=== PATIENT | male | born 1995 | race Asian ===

== ENCOUNTER 2018-06-03 04:45 | Inpatient (IN) ==
[2018-06-03 05:25] LABS: Appearance Urine Clear (Clear); Bilirubin Urine Negative (Negative); Blood Urine 3+ (Negative); Color Urine Yellow; Glucose Urine UA Negative (Negative); Ketones Urine Negative (Negative); Leukocyte Esterase Urine Negative (Negative); Nitrite Urine Negative (Negative); Protein Urine Negative (Negative); Specific Gravity Urine 1.011 (1.000-1.030); Urobilinogen Urine Negative (Negative)
[2018-06-03 05:26] LABS: Basophils # (auto) 0.02 K/uL (0-0.2); Basophils % (auto) 0.3 %; Eosinophils # (auto) 0.08 K/uL (0-0.5); Eosinophils % (auto) 1.1 %; Hematocrit (blood only) 48.3 % (42-52); Hemoglobin 17.6 g/dL (14.0-18.0); Immature Granulocytes # (auto) 0.02 K/uL (0.00-0.02); Immature Granulocytes % (auto) 0.3 %; Lymphocytes # (auto) 1.46 K/uL (1.2-3.4); Lymphocytes % (auto) 19.2 %; Mean Corpuscular Hgb Conc 36.4 g/dL (32-36); Mean Corpuscular Volume 88.3 fL (80-100); Mean Platelet Volume 10.3 fL (7.4-10.4); Monocytes # (auto) 0.35 K/uL (0.11-0.59); Monocytes % (auto) 4.6 %; Neutrophils # (auto) 5.67 K/uL (1.4-6.5); Neutrophils % (auto) 74.5 %; Platelet Count 265 K/uL (130-400); RDW Coefficient of Variation 12.1 % (11.5-14.5); RDW Standard Deviation 38.6 fL (36.4-46.3); Red Blood Count 5.47 M/uL (4.7-6.1)
[2018-06-03 05:43] LABS: Alanine Aminotransferase 64 U/L (12-78); Albumin Level 4.5 gm/dl (3.4-5.0); Aspartate Aminotransferase 280 U/L (15-37); BUN Creatinine Ratio 10.4 (10-20); Blood Urea Nitrogen 12 mg/dl (7-18); Calcium 8.9 mg/dl (8.5-10.1); Carbon Dioxide 28 mmol/L (21-32); Chloride 109 mmol/L (98-107); Est GFR (African American) 105.6; Est GFR (Non-African American) 91.1; Glucose 99 mg/dl (70-99); Potassium 3.9 mmol/L (3.5-5.1); Sodium 144 mmol/L (136-145)
[2018-06-03 05:45] LABS: Amphetamines+Metham, Urine Neg (Neg); Barbiturates, Urine Neg (Neg); Benzodiazepine, Urine Neg (Neg); Cocaine, Urine Neg (Neg); MDMA (Ecstacy), Urine Neg (Neg); Methadone, Urine Neg (Neg); Opiate, Urine Neg (Neg); Phencyclidine, Urine Neg (Neg)
[2018-06-03 05:54] LABS: Albumin Globulin Ratio 1.1 (0.9-2); Alkaline Phosphatase 63 U/L (45-117); Total Protein 8.5 gm/dl (6.4-8.2)
[2018-06-03 05:58] LABS: Acetaminophen < 2 ug/ml (10-30); Salicylate < 2.7 mg/dl (2.8-20)
[2018-06-03 06:02] LABS: Bacteria Urine Negative (Negative); Epithelial Cell Urine 0-5 /lpf (0-5); RBC Urine 0-4 /hpf (0-4); WBC Urine 0-5 /hpf (0-5)
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
[2018-06-03] MEDS ORDERED: BISMUTH SUBSALICYLATE PER ML OMNICELL CHARGE PO PRN (13:02)
[2018-06-03] MEDS ORDERED: ALUMINUM/MAGNESIUM SUSP 30 ML UDC PO PRN (13:02)
[2018-06-03] MEDS ORDERED: ACETAMINOPHEN 325 MG TAB PO PRN (13:02)
[2018-06-03] MEDS ORDERED: LORazepam 1 MG TAB PO PRN (13:02)
[2018-06-03] MEDS ORDERED: SODIUM CHLORIDE 0.65% NA SOLN 45 ML (OCEAN) PRN (13:02)
[2018-06-03] MEDS ORDERED: MAGNESIUM HYDROXIDE SUSP 30 ML UDC PO PRN (13:02)
--- NOTE | 2018-06-03 14:51 | Emergency Department Note ---
ED Visit Note I received this patient sign out at the change of shift from Dr. Apple, pending a more sober state and mental health evaluation. The patient was initially reluctant for admission for mental health treatment however after long discussion, he has very little social support. His girlfriend broke up with him several weeks ago, his best friend in a motor vehicle accident in October. Given the junk driving and thoughts of suicide without a clear plan, I do feel the patient is impulsive and at high risk for danger to himself. Patient did admit that his parents are forcefully encouraging him to obtain a PhD, although he has no desire to do so. Patient has now been charged with a DUI which will alter his visa status which will further complicate his social situation. He has agreed to sign in voluntarily. Patient was referred to [facility] and accepted. . : Alcohol intoxication Qualifiers: Complication of substance-induced condition: uncomplicated Qualified Code(s): F10.920 - Alcohol use, unspecified with intoxication, uncomplicated
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
--- NOTE | 2018-06-06 10:19 | Discharge Summary ---
Date of Service June 06, 2018 History of Present Illness The patient is 22 yo Seth [facility] leon from [place], with no past psychiatric history, who says that he has been sad since his best friend in an MVA in Oct 2017, while they were texting. He says that he feels some degree of responsibility for his since they were texting back and forth, but at the same time, knows that his friend made his own choices about texting while driving. He denies symptoms of depression before this event, and since the event denies regular problems with sleep, appetite, anxiety or SI. He reports that yesterday he woke up thinking about his friend leading him to feel sad. He says that he "overreacted" and started drinking. He was driving in his car, was pulled over and charged with DUI, and when he was in the police car he says that he made suicidal statements, while under the influence. There is a 302 petitioners statement from the solar energy installation manager indicating the even after his alcohol level came down and he was medically cleared, he was still admitting that he was severely depressed and had thought about killing himself last night but did not because he did not want to cause pain to his friends and family. He admits that he was trying to think of a way to kill himself that would not appear to be suicide to save his family from that hurt. She also lists multiple stressors including his friends , expectations from his family to go on and get his PhD which he does not want to do, and recent breakup with a girlfriend. At the time I see the patient, he is clearly minimizing. He admits he made suicidal statements while under the influence and only once in the police car and denies that after he sobered up that he had any further thoughts of suicide. He has told his parents that he is here and they are "angry". He had told the family service caseworker in the ED last evening that because of the DUI he would likely lose his visa, after returning to [place] which would upset both his parents and the [facility] government. He would not be allowed to return to the [place]. He admits that he got drunk, and had been sad but believes that he overreacted. Today he admits to sadness but denies suicidal thoughts. He continues to deny vegetative symptoms. He denies ever having had any auditory or visual hallucinations. He denies any self-injurious behaviors. He denies any history of eating disorder behaviors. He denies any discrete episodes of euphoric mood, sleeplessness or pleasure seeking behaviors that would be congruent with bipolar disorder. He has submitted his 72-hour notice to withdraw from treatment which will June 06 at 1430 and would like to go home as soon as possible. Physical Exam Psychiatric Orientation: alert, oriented x 3, cooperative and + guarded Apperance: appropriately dressed, appropriately groomed and appeared stated age Eye Contact: + fair eye contact Motor Behavior: steady gait and station and no abnormal motor movements Speech: normal rate/rhythm/volume of speech Affect: + blunted affect Mood: no depressed mood and no anxious mood "Okay." Thought Process: goal directed thought process Thought Content: reality based without delusions Suicidal Thoughts: denies suicidal thoughts Homicidal Thoughts: denies homicidal thoughts Hallucinations: no auditory hallucinations Cognition: recent memory grossly intact, attention grossly intact and language grossly intact Estimated Intelligence: consistent with education level Insight: + fair insight Judgement: + fair judgement Vital Signs (Past 24 Hours) Last Vital Signs Temp 36.6 C 06/06/18 09:43 Pulse 62 06/06/18 09:43 Resp 16 06/06/18 09:43 BP 126/81 06/06/18 09:43 Pulse Ox 99 06/06/18 09:43 Principal Diagnosis Adjustment disorder Alcohol intoxication Psychiatric Data The patient was hospitalized on our unit for 3 days. He signed in voluntarily, but submitted a 72-hour notice requesting to withdraw from treatment immediately after arriving on the unit. He consistently denied suicidal thoughts and symptoms of depression, stating that he felt overwhelmed after police pulled him over and he got a DUI, and that he only had suicidal thoughts briefly in that context. He refused to allow staff to speak with his parents, but he called them in [place], and said that he told them about his DUI and that he was in the hospital. He did allow staff to contact his roommate, who said he had not noted any signs of depression and the patient, and had no concerns about his safety. He had a meeting with [employer] staff from the office of student care and advocacy, and agreed to meet with them again after discharge. He was focused on wanting discharge, stating that he needed to meet with an deputy county attorney to deal with his DUI. He did endorse concern that his DUI would result in his visa being revoked, and that he would not be able to continue at [facility]. Because of this, he said he would not return home to [place] for the summer as planned, as he was worried that he would then not be allowed to return to the [place]. No medications were started, but he did agree to a referral to [facility] for therapy. He was advised of recommendations to abstain from alcohol given his recent DUI and clear worsening of mood with suicidal thoughts when intoxicated. Day of Discharge Assessment The patient states his mood is "okay," continues to deny suicidal thoughts, is requesting discharge, and denies any safety concerns with leaving the hospital. He is willing to follow up with therapy at [facility]. His roommate will be picking him up. Transition of Care Transition Of Care Record: was reviewed with the patient Advance Directives Advance Directives Information Provided: Yes Advance Directives: No Mental Health Advance Directive: No Advance Directives on File: No Living Will: No Power of Rock Crushing Machine Operator: No Advance Directives Reason:: Declines as Mental Health Visit. Risk Factors Assessment Risk factors were mitigated by admission to the inpatient unit, evaluation and monitoring of mood symptoms, review of recommendations to abstain from substance use given the risk of worsening mood and suicidal thoughts, recommendations for a family meeting with his parents which she refused, contacting his roommate for collateral information, involving him in groups and therapy, working on healthy coping skills and a discharge safety plan, coordination with the [facility], and referral for outpatient therapy. The patient has consistently denied mood symptoms and suicidal thoughts, and is tending to ADLs independently, and states willingness to follow up as an outpatient. He submitted a 72-hour notice which expires today, and is requesting discharge. As he is no longer at acute risk of harm to himself, he can be discharged and managed as an outpatient at this time. He has not endorsed thoughts of harming others or a history of violence, and is at low risk for harm to others. Male: Yes : No Do You Have Access To A Gun?: No Health Problems: No Mental Health Diagnoses: No Substance Use Disorders: No Previous Attempt: No Family History of Suicide: No Previous Psychiatric Hospitalization: No Hopelessness: No Smoker: No Protective Factors Assessment Holiness Beliefs: No : No Responsible for Young Children: No Employed: Yes Supportive Family: No Good Rapport with Provider: No Tobacco Cessation at Discharge Tobacco Cessation Medication Prescribed at Discharge: Not Applicable/Non-Smoker Total Time Total Time Spent: Greater Than 30 Minutes Total Time Includes: Examination of the patient, Discharge Planning and Medication Reconciliation Discharge Data Lab Results 06/03/18 06/03/18 06/03/18 05:10 05:10 05:14 WBC 7.60 RBC 5.47 Hgb 17.6 Hct 48.3 MCV 88.3 MCH 32.2 MCHC 36.4 H RDW Std Deviation 38.6 RDW Coeff of Matti 12.1 Plt Count 265 MPV 10.3 Immature Gran % (Auto) 0.3 Neut % (Auto) 74.5 Lymph % (Auto) 19.2 Early % (Auto) 4.6 Eos % (Auto) 1.1 Baso % (Auto) 0.3 Immature Gran # (Auto) 0.02 Neut # (Auto) 5.67 Lymph # (Auto) 1.46 Early # (Auto) 0.35 Eos # (Auto) 0.08 Baso # (Auto) 0.02 Sodium Potassium Chloride Carbon Dioxide Anion Gap BUN Creatinine Est Cr Clr Drug Dosing Est GFR ( Amer) Est GFR (Non-Af Amer) BUN/Creatinine Ratio Glucose Calcium Total Bilirubin AST ALT Alkaline Phosphatase Total Protein Albumin Globulin Albumin/Globulin Ratio Folate TSH Urine Color Yellow Urine Appearance Clear Urine pH 7.0 Ur Specific Delta 1.011 Urine Protein Negative Urine Glucose (UA) Negative Urine Ketones Negative Urine Blood 3+ H Urine Nitrite Negative Urine Bilirubin Negative Urine Urobilinogen Negative Ur Leukocyte Esterase Negative Urine RBC 0-4 Urine WBC 0-5 Ur Epithelial Cells 0-5 Urine Bacteria Negative Salicylates Urine Opiates Screen Neg Ur Methadone, Qual Neg Acetaminophen Urine Barbiturates Neg Ur Phencyclidine (PCP) Neg U Amphetamin/Meth Scrn Neg MDMA (Ecstasy) Screen Neg U Benzodiazepines Scrn Neg Ur Cocaine Metabolite Neg U Marijuana (THC) Screen Neg Ethyl Alcohol mg/dL 06/03/18 06/03/18 06/03/18 05:14 05:14 05:14 WBC RBC Hgb Hct MCV MCH MCHC RDW Std Deviation RDW Coeff of Matti Plt Count MPV Immature Gran % (Auto) Neut % (Auto) Lymph % (Auto) Early % (Auto) Eos % (Auto) Baso % (Auto) Immature Gran # (Auto) Neut # (Auto) Lymph # (Auto) Early # (Auto) Eos # (Auto) Baso # (Auto) Sodium 144 Potassium 3.9 Chloride 109 H Carbon Dioxide 28 Anion Gap 7.0 BUN 12 Creatinine 1.15 Est Cr Clr Drug Dosing Not Reportable Est GFR ( Amer) 105.6 Est GFR (Non-Af Amer) 91.1 BUN/Creatinine Ratio 10.4 Glucose 99 Calcium 8.9 Total Bilirubin 2.0 H AST 280 H ALT 64 Alkaline Phosphatase 63 Total Protein 8.5 H Albumin 4.5 Globulin 4.0 Albumin/Globulin Ratio 1.1 Folate TSH 1.090 Urine Color Urine Appearance Urine pH Ur Specific Delta Urine Protein Urine Glucose (UA) Urine Ketones Urine Blood Urine Nitrite Urine Bilirubin Urine Urobilinogen Ur Leukocyte Esterase Urine RBC Urine WBC Ur Epithelial Cells Urine Bacteria Salicylates < 2.7 L Urine Opiates Screen Ur Methadone, Qual Acetaminophen < 2 L Urine Barbiturates Ur Phencyclidine (PCP) U Amphetamin/Meth Scrn MDMA (Ecstasy) Screen U Benzodiazepines Scrn Ur Cocaine Metabolite U Marijuana (THC) Screen Ethyl Alcohol mg/dL 198.0 H 06/03/18 13:11 WBC RBC Hgb Hct MCV MCH MCHC RDW Std Deviation RDW Coeff of Matti Plt Count MPV Immature Gran % (Auto) Neut % (Auto) Lymph % (Auto) Early % (Auto) Eos % (Auto) Baso % (Auto) Immature Gran # (Auto) Neut # (Auto) Lymph # (Auto) Early # (Auto) Eos # (Auto) Baso # (Auto) Sodium Potassium Chloride Carbon Dioxide Anion Gap BUN Creatinine Est Cr Clr Drug Dosing Est GFR ( Amer) Est GFR (Non-Af Amer) BUN/Creatinine Ratio Glucose Calcium Total Bilirubin AST ALT Alkaline Phosphatase Total Protein Albumin Globulin Albumin/Globulin Ratio Folate 5.57 TSH Urine Color Urine Appearance Urine pH Ur Specific Delta Urine Protein Urine Glucose (UA) Urine Ketones Urine Blood Urine Nitrite Urine Bilirubin Urine Urobilinogen Ur Leukocyte Esterase Urine RBC Urine WBC Ur Epithelial Cells Urine Bacteria Salicylates Urine Opiates Screen Ur Methadone, Qual Acetaminophen Urine Barbiturates Ur Phencyclidine (PCP) U Amphetamin/Meth Scrn MDMA (Ecstasy) Screen U Benzodiazepines Scrn Ur Cocaine Metabolite U Marijuana (THC) Screen Ethyl Alcohol mg/dL Hospital Course (1) Depression with suicidal ideation: (2) Adjustment disorder: 06/04 - Does not meet criteria for a major depressive disorder, so no recommendati ons for medications, but would benefit from therapy - Will need to obtain supplemental information from friends/family to confirm recent history - Q 15 min checks for safety - Encourage participation in group and individual counseling - Patient has submitted his 72 hr notice to withdraw from treatment. Will continue to gather information toward the need for further inpatient treatment. - Assist the patient to explore healthy coping strategies - Recommend he abstain from alcohol during this time of grief and sadness. 06/05 -Patient continues to deny depressive symptoms and suicidal thoughts, but appears somewhat withdrawn and depressed. Continue to monitor. -Patient continues to refuse to allow staff contact with his parents in [place]. -Meeting with student care and advocacy at [facility] today. -Refer for outpatient therapy. Post Discharge Appointments Primary Care Physician Name Of Family Doctor: LEXIE Therapist Name of Therapist: Sherri Therapist's Date of Therapist Appointment: 06/29/18 Time of Therapist Appointment: 12:30pm Therapy Appointment Comment: [address] [facility], [address], [place] [address] Therapist Release of Information: Obtained, Reviewed and Signed Electronic Video Games Servicer Name of Electronic Video Games Servicer: Student Care and Advocacy Henrry Ford Phone Number for Electronic Video Games Servicer: [phone] Date of Appointment with Electronic Video Games Servicer: 06/07/18 Time of Appointment with Electronic Video Games Servicer: 11:30am Case Management Appointment Comment: [address] [place] [address], [address], [place] Smoking Cessation Counseling Tobacco Cessation Medication Prescribed at Discharge: Not Applicable/Non-Smoker Contact Information Discharge Discharge Address: [address] [place] [address] [address] [place] [address] Discharge Plan Discharge Items Patient Disposition: Home - Self-Care Reason For Visit: UNSPECIFIED DEPRESSIVE DISORDER Discharge Diagnosis: Adjustment disorder Alcohol intoxication Discharge Goals: Improve disease control, Improve function, Learn about illness, Prevent disease and Therapeutic intervention Activity: Per 'Additional Instructions' section Non-emergency contact: Therapist Call non-emergency contact if: you have any medication questions and your symptoms worsen Follow-up/Referrals: PCP,NO [Primary Care Provider] - Diet: Regular Addtl Provider Instructions: SPECIAL CARE INSTRUCTIONS: 1. Follow through with your scheduled aftercare appointments. If unable to keep an appointment, please call to reschedule. 2. Take your medication only as prescribed. Medication should not be changed or stopped without the approval of your doctor. In the event of worsening symptoms or concerns about side effects, contact your doctor immediately. 3. Utilize new healthy coping skills, anger management skills, and stress management skills learned during your hospitalization. Journal feelings and process them with a support person. Identify stressors or situations that may result in relapse, deterioration or inappropriate behaviors and develop a plan to deal with those issues. 4. If your coping skills are ineffective and you are in crisis, contact your outpatient providers for direction. If unable to reach your providers, please call the CAN HELP LINE AT or go to the closest Emergency Room. 5. Avoid alcohol and un-prescribed drugs. 6. You have been provided with the Mental Health Advance Directives Pamphlet for your review. AFTERCARE APPOINTMENTS: * Please call your insurance company prior to your scheduled appointment to confirm your aftercare providers are covered. Take your insurance information to your appointments. WHO TO CALL AND WHEN: Medical Emergencies: For questions or emergencies related to your hospital stay, please contact the Inpatient Behavioral Health Unit at [phone]. A asset accountant is on-call 19/09 for the Behavioral Health Unit for emergencies At any time you feel your situation is an emergency, you may also call 911 immediately. Your Doctors Instructions noted above were prepared by provider Mayelin Pimentel MD. Prescriptions: No Action No Known Home Medications RF: 0 Stand-Alone Forms: [facility] Discharge Orders: Discharge Order (Routine); Ordered 06/06/18 Ordered By: Mayelin Pimentel Admission Data Admit Date/Time: 06/03/18 12:50 Attending Provider: Mayelin Pimentel Admit Provider: Renée Marx Primary Care Provider: PCP,NO Service: Psychiatry Other Interventions: Discharge Summary Assessment (RN) Last Done: 06/06/18 09:43 PSY Interdisciplinary Discharge Planning Last Done: 06/06/18 09:42 Pending Studies at Discharge: No
== END 2018-06-06 10:25 | disposition home or self-care (01) | DRG 881 ==
LOC: ED 04:45 → 3S 12:46